=== PATIENT | female | born 1995 | race Caucasian/White ===

== ENCOUNTER 2017-01-12 11:02 | Emergency (ER) | payer MEDICAID ==
[~2017-01-12] VITALS: Ht 149.9 cm; Wt 56.0 kg
[~2017-01-12 11:02] MED LIST: ACET325T33 PO; CEPH-443 PO
[2017-01-12 11:07] VITALS: Ht 149.9 cm; Wt 56.0 kg
[2017-01-12 12:37] LABS: URINE BLOOD (Dip) POC Negative (NEGATIVE)
--- NOTE | 2017-01-12 12:53 | RADRPT ---
PROCEDURE: Obstetrical ultrasound. CLINICAL INDICATION: , evaluation. Pelvic pain. TECHNIQUE: Transabdominal sonographic images of the pelvis are obtained. COMPARISON: 09/12/2016 FINDINGS: Single intrauterine gestation. There is a vertex presentation. Measurements were made in order to determine age. The results are as follows: BPD = 3.2 cm HC = 11.67 cm AC = 11.19 cm FL = 1.81 cm Mucous vertical fluid pocket of 4.07 cm. Heart rate = 148 beats per minute The placenta is anterior. Lower margin of the placenta and its relationship to the cervix is not casey camille visualized. Ovaries are not visualized. IMPRESSION: Single intrauterine gestation of approximately 16 weeks 1 days by ultrasound criteria. Hadlock estimated weight = 146 g; gestational age is unknown. Lower margin of the placenta and its relationship to the cervix is not clearly visualized. Placenta previa is not excluded. No evidence of placental abruption. Follow-up examination is suggested. RPTAT: AADD .Garett Turner MD, MD Date Time Electronically viewed and signed by .Garett Turner MD, on 01/12/2017 12:53 .B/
[2017-01-12] MEDS ORDERED: ACET500C5 PO (13:07)
--- NOTE | 2017-01-12 13:13 | ERD ---
ER Documentation Chief Complaint Date/Time DATE: 01/12/17 TIME: 13:11 Chief Complaint INTERMITTENT PELVIC PAIN X1 WEEK. PT STATES SHE IS 12 WEEKS . HPI This 21-year-old female presents with a one-week history of lower intermittent crampy pelvic pain. She is approximately 12 weeks by dates. She has vaginal bleeding, fevers, vomiting. She may have some dysuria. She denies rashes or external lesions. She is receiving care. She is a G4 para 1 ROS All systems reviewed and are negative except as per history of present illness. Medications Home Meds Active Scripts Acetaminophen* (Tylophen*) 500 Mg Capsule, 1 CAP PO Q6H Y for PAIN AND OR ELEVATED TEMP, #15 CAP Prov:BIANCA KIM MD 01/12/17 Acetaminophen* (Tylenol*) 325 Mg Tablet, 2 TAB PO Q6 Y for PAIN AND OR ELEVATED TEMP, #30 TAB Prov:WILLOW HOLCOMB PA-C 09/12/16 Cephalexin* (Keflex*) 500 Mg Capsule, 500 MG PO QID for 7 Days, CAP Prov:MARIUM JOSUEC 06/26/15 Allergies Allergies: Coded Allergies: No Known Allergy (Unverified , 06/25/15) PMhx/Soc Medical and Surgical Hx: pt denies Medical Hx, pt denies Surgical Hx History of Surgery: No Anesthesia Reaction: No Hx Neurological Disorder: No Hx Respiratory Disorders: No Hx Cardiac Disorders: No Hx Psychiatric Problems: No Hx Miscellaneous Medical Probl: No Hx Alcohol Use: No Hx Substance Use: No Hx Tobacco Use: No Smoking Status: Never smoker Physical Exam Vitals Vital Signs Date Time Temp Pulse Resp B/P Pulse Ox O2 Delivery O2 Flow Rate FiO2 01/12/17 11:07 98.5 93 16 110/58 99 Physical Exam Const: [] Alert, [id number]. Head: Atraumatic Eyes: Normal Conjunctiva ENT: Normal External Ears, Nose and Mouth. Neck: Full range of motion..~ No meningismus. Resp: Clear to auscultation bilaterally Cardio: Regular rate and rhythm, no murmurs Abd: Soft, minimal suprapubic tenderness. No tenderness at McBurney's point. No Gonzales sign and no rebound., non distended. Normal bowel sounds Skin: No petechiae or rashes Back: No midline or flank tenderness Ext: No cyanosis, or edema Neur: Awake and alert Psych: Normal Mood and Affect Results 24 hrs Laboratory Tests Test 01/12/17 12:36 Bedside Urine pH (LAB) 6.0 Bedside Urine Protein (LAB) 1+ Bedside Urine Glucose (UA) Negative Bedside Urine Ketones (LAB) Trace Bedside Urine Blood Negative Bedside Urine Nitrite (LAB) Negative Bedside Urine Leukocyte Esterase (L Negative Current Medications Medications (Trade) Dose Ordered Sig/Jack Route PRN Reason Start Time Stop Time Status Last Admin Dose Admin Acetaminophen (Tylenol Tab) 650 mg ONCE ONCE PO 01/12/17 13:30 01/12/17 13:31 01/12/17 13:11 Procedures/MDM Urine shows no leukocytes, nitrites and glucose. Pelvic ultrasound shows approximately 16 week intrauterine with no acute abnormalities. Patient was given Tylenol for pain. Patient since with lower abdominal pain of uncertain etiology of early second trimester . Signs or symptoms currently not suggestive of appendicitis, acute abdomen, additional acute causes of her abdominal pain. Signs or symptoms do not suggest ovarian torsion , PID. She will treated with Tylenol and further observation at home. She is advised to follow-up with OB this week return to the ER for new or worsening symptoms. Urine was sent for gonorrhea chlamydia. Departure Diagnosis: Primary Impression: Abdominal pain affecting Condition: Stable Patient Instructions: Abdominal Pain, Early Additional Instructions: Ultrasound shows normal-appearing 16 week . Urine is normal. Recommend drink clear fluids, take Tylenol for pain and recheck with OB this week. Return for bleeding, fevers, vomiting, new worsening symptoms. BIANCA KIM MD Jan 12, 2017 13:13
[2017-01-12] MEDS ORDERED: ACETAMINOPHEN 325 MG TAB PO ONE (13:30)
== END 2017-01-12 13:28 | disposition home or self-care (01) ==
LOC: FTE 11:02
DX: O26.892 Other specified pregnancy related conditions, second trimester (principal); R10.2 Pelvic and perineal pain; Z3A.16 16 weeks gestation of pregnancy
CPT/HCPCS: 76805; 81003; 87591; Z7502; Z7610

== ENCOUNTER 2017-02-06 11:56 | Emergency (ER) | payer MEDICAID ==
[~2017-02-06] VITALS: Wt 58.6 kg
[~2017-02-06 11:56] MED LIST changes: +ACET500C5 PO
--- NOTE | 2017-02-06 13:00 | RADRPT ---
PROCEDURE: XR right wrist. CLINICAL INDICATION: Wrist pain TECHNIQUE: 4 views are available for review. COMPARISON: No prior studies are available for comparison. FINDINGS: There is an 8 mm osteochondroma arising from the volar aspect of the distal radius. The osseous structures are otherwise normal in mineralization, architecture and alignment. No fract ure or osseous lesion is identified. The joints are unremarkable. No erosions are identified.The so ft tissues are unremarkable. IMPRESSION: 8 mm osteochondroma arising from the volar aspect of the distal radius Otherwise unremarkable examination RPTAT: HGDB .Jus Oconnell MD, Date Time Electronically viewed and signed by .Jus Oconnell MD, on 02/06/2017 13:00 .B/
[2017-02-06] MEDS ORDERED: IBUP400T22 PO (13:03)
--- NOTE | 2017-02-06 13:09 | ERD ---
ER Documentation Chief Complaint Date/Time DATE: 02/06/17 TIME: 13:08 Chief Complaint right wrist pain from a fall 1 month ago . swelling no deformity noted. HPI This 89-year-old female complains of a bump on her right wrist. She relates to an episode 1 month ago her friend fell onto her right wrist. She had minimal pain for a week or 2 but is noticed some pain and swelling. She has restricted range of motion weakness or bleeding or lacerations. Patient is approximately 20 weeks . Denies vaginal bleeding, pain, additional symptoms. ROS All systems reviewed and are negative except as per history of present illness. Medications Home Meds Active Scripts Acetaminophen* (Tylophen*) 500 Mg Capsule, 1 CAP PO Q6H Y for PAIN AND OR ELEVATED TEMP, #15 CAP Prov:BIANCA KIM MD 01/12/17 Acetaminophen* (Tylenol*) 325 Mg Tablet, 2 TAB PO Q6 Y for PAIN AND OR ELEVATED TEMP, #30 TAB Prov:WILLOW HOLCOMB PA-C 09/12/16 Cephalexin* (Keflex*) 500 Mg Capsule, 500 MG PO QID for 7 Days, CAP Prov:MARIUM JOSUE PA-C 06/26/15 Discontinued Scripts Ibuprofen* (Motrin*) 400 Mg Tab, 400 MG PO Q6, #15 TAB Prov:BIANCA KIM MD 02/06/17 Allergies Allergies: Coded Allergies: No Known Allergy (Unverified , 06/25/15) PMhx/Soc Medical and Surgical Hx: pt denies Medical Hx, pt denies Surgical Hx History of Surgery: No Anesthesia Reaction: No Hx Neurological Disorder: No Hx Respiratory Disorders: No Hx Cardiac Disorders: No Hx Psychiatric Problems: No Hx Miscellaneous Medical Probl: No Hx Alcohol Use: No Hx Substance Use: No Hx Tobacco Use: No Smoking Status: Never smoker Physical Exam Vitals Vital Signs Date Time Temp Pulse Resp B/P Pulse Ox O2 Delivery O2 Flow Rate FiO2 02/06/17 12:06 98.0 74 20 98/54 99 Physical Exam Const: [] Alert, [id number] per Head: Atraumatic Eyes: Normal Conjunctiva ENT: Normal External Ears, Nose and Mouth. Neck: Full range of motion..~ No meningismus. Resp: Clear to auscultation bilaterally Cardio: Regular rate and rhythm, no murmurs Abd: Soft, non tender, non distended. Normal bowel sounds Skin: No petechiae or rashes Back: No midline or flank tenderness Ext: No cyanosis, or edema. There is a palpable bony lesion on the right distal radius. Neur: Awake and alert Psych: Normal Mood and Affect Procedures/MDM X-ray right wrist 3V Interpreted by me: Scaphoid: [Normal] Bones: [No fracture]. There is a benign-appearing osteochondroma on the right distal radius. Joints: [No dislocation] Foreign body: [None]. Impression-likely osteochondroma arising from the distal radius. Patient presents to the right wrist lesion and signs of a osteochondroma. Patient is . I am recommending further evaluation by orthopedist likely more definitive treatment after . She should return sooner for fevers, redness, new worsening symptoms. There is no signs of fracture, dislocation, septic arthritis, additional emergent conditions as the cause of her presenting complaints. Departure Diagnosis: Primary Impression: Osteochondroma of right wrist Condition: Stable Patient Instructions: Tumor, Uncertain Cause Referrals: JOEY CAAL MD,IN MARY LOU SUH Additional Instructions: Likely osteochondroma which is a benign growth which can be removed or evaluated after . See orthopedist for follow-up. May need authorization from primary doctor for orthopedist visit BIANCA KIM MD February 06, 2017 13:09
== END 2017-02-06 13:12 | disposition home or self-care (01) ==
LOC: FTE 11:56
DX: O99.89 Other specified diseases and conditions complicating pregnancy, childbirth and the puerperium (principal); D16.11 Benign neoplasm of short bones of right upper limb; M25.531 Pain in right wrist; Z3A.20 20 weeks gestation of pregnancy

== ENCOUNTER 2017-06-06 15:24 | Outpatient (CLI) | payer MEDICAID ==
[~2017-06-06] VITALS: Ht 152.4 cm; Wt 67.2 kg
[2017-06-06] MEDS ORDERED: PRENAT PO (15:41)
[2017-06-06 15:42] VITALS: BP 101/50; PULSE 86; RESP 18; Ht 152.4 cm; Wt 67.2 kg
--- NOTE | 2017-06-06 17:26 | RADRPT ---
PROCEDURE: Obstetrical ultrasound. CLINICAL INDICATION: , evaluation. Pelvic pain. TECHNIQUE: Transabdominal sonographic images of the uterus obtained after first trimester , greater than 14 weeks gestation. Single intrauterine gestation present. COMPARISON: 01/12/2017 FINDINGS: Single intrauterine gestation. There is a cephalic presentation. Measurements were made in order to determine age. The results are as follows: BPD = 35 weeks 1 day(s) HC = 34 weeks 5 day(s) AC = 34 weeks 4 day(s) FL = 35 weeks 1 day(s) Heart rate = 126 beats per minute The placenta is posterior. There is no evidence for an abruption or placenta previa. Ovaries are not visualized. IMPRESSION: Single intrauterine gestation of approximately 34 weeks 6 days by ultrasound criteria. Hadlock estimated weight = 2524 g; 20 percentile for gestational age of 36 weeks 0 days. RPTAT: AADD .Garett Turner MD, MD Date Time Electronically viewed and signed by .Garett Turner MD, MD on 06/06/2017 17:26 .B/
--- NOTE | 2017-06-06 17:33 | RADRPT ---
PROCEDURE: Obstetrical ultrasound for biophysical profile CLINICAL INDICATION: Biophysical profile. . TECHNIQUE: Obstetrical ultrasound of the uterus for biophysical profile. Transabdominal views are obtained. COMPARISON: 06/06/2017 FINDINGS: Single intrauterine gestation. Presentation: Cephalic. Placenta: Posterior No evidence of placental abruption. No evidence of placenta previa. breathing movement = 2/2 tone = 2/2 motion = 2/2 LIAM = 2/2 LIAM = 11.9 cm heart rate: 148 beats per minute IMPRESSION: Single intrauterine gestation. Biophysical profile 05/12 RPTAT: AADD .Garett Turner MD, MD Date Time Electronically viewed and signed by .Garett Turner MD, on 06/06/2017 17:32 .B/
--- NOTE | 2017-06-06 18:45 | TRIAGE ---
OB Triage Datetime Report Generated by CPN: 06/06/2017 18:45 Datetime: 06/06/2017 17:37 Labor Evaluation Frequency: 00 Monitor Mode: External Quality: Mild Resting Tone [place]: Relaxed Contraction Comments: PT DENIES UC'S AT THIS TIME Heart Rate FHR Baseline Rate: 130 Monitor Mode: External US Variability: Moderate 6-25 bpm Accelerations: 15X15 Decelerations: None Category: Category I Datetime: 06/06/2017 16:26 Labor Evaluation Frequency: 0 Monitor Mode: External Duration (sec)2399: 0 Resting Tone [place]: Relaxed Contraction Comments: PT DENIES UC'S AT THIS TIME Heart Rate FHR Baseline Rate: 125 Monitor Mode: External US Variability: Moderate 6-25 bpm Accelerations: 15X15 Decelerations: None Category: Category I Datetime: 06/06/2017 15:39 Assessment Type: Triage Maternal Assessment Level of Consciousness: Fully Conscious DTR's/Clonus: DTRs 2+; No Clonus Headache: Denies Blurred Vision: No Respiratory Effort: Unlabored; Regular Rhythm; Equal Expansion Breath Sounds, Left: Clear and Equal Breath Sounds, Right: Clear and Equal Nausea/Vomiting: Denies RUQ Epigastric Pain: Denies Lower Extremities Edema: None Degree: None Upper Extremities Edema: None Degree: None Facial Edema: None Fall Risk Assessment History of Falling: (0) No Secondary Diagnosis: (0) No Ambulatory Aid: (0) Bedrest/Nurse Assist IV Therapy: (0) No Gait: (0) Normal/Bedrest/Immobile Mental Status: (0) Oriented to Own Ability Fall Score: 0 Fall Risk Score Definition: No Risk: No action required Datetime: 06/06/2017 15:38 Time of Arrival: 06/06/2017 15:19 EGA: 36.0 Arrived By: Wheelchair Arrived From: Home Chief Complaint: PT HERE C/O CONSTANT ABD. PAIN Movement: Present Contractions: Denies/Absent Rupture of Membranes: Denies Vaginal Bleeding: None Vaginal Discharge: Denies Recent Sexual Intercouse: Denies Abdominal Trauma: Not Applicable Patient Complaints: None Time Provider Notified: 06/06/2017 16:00 [facility] Initial Plan: BPP/EFW/NST Datetime: 06/06/2017 15:34 Monitor Mode: External Monitor Mode: External US
--- NOTE | 2017-08-20 11:55 | PN ---
Triage Information Date/Time Reason for visit: abdominal pain Weeks of Gestation 36 weeks /Para 4 Para 1 SUSY LLAMAS MD Aug 20, 2017 11:41
== END 2017-06-06 18:05 | disposition home or self-care (01) ==
LOC: OBT 15:24 → L-D 15:24 → OBT 18:05
DX: O26.893 Other specified pregnancy related conditions, third trimester (principal); R10.9 Unspecified abdominal pain; Z3A.36 36 weeks gestation of pregnancy
CPT/HCPCS: 76815; 76818; Z7500; G0463